=== PATIENT | male | born 1995 | race Caucasian/White ===

== ENCOUNTER 2019-05-16 09:31 | Emergency (ER) | payer OTHER ==
[~2019-05-16] VITALS: Ht 180.3 cm; Wt 129.3 kg
[2019-05-16 09:36] VITALS: Ht 180.3 cm; Wt 129.3 kg
[2019-05-16 10:03] VITALS: BP 128/85
== END 2019-05-16 10:03 | disposition home or self-care (01) ==
LOC: ED 09:31
DX: K52.9 Noninfective gastroenteritis and colitis, unspecified (principal); Z98.890 Other specified postprocedural states

== ENCOUNTER 2019-05-25 19:20 | Emergency (ER) | payer OTHER ==
[~2019-05-25] VITALS: Ht 180.3 cm; Wt 126.1 kg
[2019-05-25 20:01] VITALS: Ht 180.3 cm; Wt 126.1 kg
[2019-05-26 01:34] VITALS: BP 108/75
== END 2019-05-26 01:34 | disposition home or self-care (01) ==
LOC: ED 19:20
DX: G89.29 Other chronic pain (principal); R10.32 Left lower quadrant pain
CPT/HCPCS: 36415; J1885

== ENCOUNTER 2019-09-28 11:17 | Emergency (ER) | payer OTHER ==
[~2019-09-28] VITALS: Ht 180.3 cm; Wt 131.1 kg
[2019-09-28 11:25] VITALS: BP 150/80; Ht 180.3 cm; Wt 131.1 kg
== END 2019-09-28 12:10 | disposition home or self-care (01) ==
LOC: ED 11:17
DX: H61.21 Impacted cerumen, right ear (principal); Z98.890 Other specified postprocedural states

== ENCOUNTER 2019-10-02 18:23 | Emergency (ER) | payer OTHER ==
[~2019-10-02] VITALS: Ht 180.3 cm; Wt 132.9 kg
[2019-10-02 19:19] VITALS: BP 138/86; Ht 180.3 cm; Wt 132.9 kg
== END 2019-10-02 21:12 | disposition home or self-care (01) ==
LOC: ED 18:23
DX: H66.91 Otitis media, unspecified, right ear (principal); H61.21 Impacted cerumen, right ear; Z98.890 Other specified postprocedural states

== ENCOUNTER 2020-05-02 04:49 | Emergency (ER) | payer OTHER ==
[~2020-05-02] VITALS: Ht 180.3 cm; Wt 135.3 kg
[2020-05-02 04:55] VITALS: Ht 180.3 cm; Wt 135.3 kg
[2020-05-02 05:53] VITALS: BP 126/78
== END 2020-05-02 05:53 | disposition home or self-care (01) ==
LOC: ED 04:49
DX: S05.01XA Injury of conjunctiva and corneal abrasion without foreign body, right eye, initial encounter (principal); W45.8XXA Other foreign body or object entering through skin, initial encounter; Y93.89 Activity, other specified; Y92.89 Other specified places as the place of occurrence of the external cause; Y99.8 Other external cause status